=== PATIENT | female | born 1980 | race Caucasian/White ===

== ENCOUNTER 2016-09-28 21:17 | Emergency (ER) | payer SELFPAY ==
[~2016-09-28] VITALS: Ht 152.4 cm; Wt 79.5 kg
[2016-09-28 21:25] VITALS: TEMP 99
[2016-09-28 22:18] LABS: BASO # 0.1 (0.0-0.2); BASO % 0.4 % (0.0-2.0); EOS # 0.9 (0.0-0.7); EOS % 4.3 % (0-4.0); GRAN % 86.5 % (42.2-75.2); HEMOGLOBIN 15.1 g/dl (12.5-16.0); LYMPH # 0.7 (1.2-3.4); LYMPH % 3.3 % (20.0-51.0); MEAN CELL VOLUME 89 fl (80.0-100.0); MEAN CORPUSCULAR HEMOGLOBIN 31 pg (27.0-31.0); MEAN CORPUSCULAR HGB CONC 35 g/dl (33.0-37.0); MEAN PLATELET VOLUME 8.7 fl (7.4-10.4); PLATELET COUNT 380 K/mm3 (130-400); RED BLOOD COUNT 4.81 M/mm3 (4.10-5.30); REDCELL DISTRIBUTION WIDTH-CV 12.5 % (11.5-14.5)
[2016-09-28 22:20] LABS: WHITE BLOOD COUNT 20.8 K/mm3 (4.8-10.8)
[2016-09-28 22:30] LABS: ADJUSTED CALCIUM 8.1 mg/dL (8.4-10.2); ALBUMIN 4.4 gm/dL (3.5-5.0); BILIRUBIN,TOTAL 0.6 mg/dL (0.0-1.0); CALCIUM 8.4 mg/dL (8.4-10.2); CREATININE, serum 0.61 mg/dL (0.52-1.25); POTASSIUM 3.5 mmol/L (3.4-5.0); TOTAL PROTEIN 7.6 gm/dL (6.4-8.2)
[2016-09-28 23:22] LABS: PH 5 (5-8); SQUAMOUS EPITHELIAL 0-2 /hpf; URINE APPEARANCE Clear; URINE BACTERIA None Seen /hpf; URINE BILIRUBIN Negative (NEGATIVE); URINE BLOOD Negative (NEGATIVE); URINE COLOR Yellow; URINE GLUCOSE Negative (NEGATIVE); URINE KETONE Trace (NEGATIVE); URINE RBC 0-2 /hpf; URINE UROBILINOGEN Negative (NEGATIVE); URINE WBC 0-2 /hpf
[2016-09-28 23:47] VITALS: BP 145/92; PULSE 77
== END 2016-09-28 23:49 | disposition home or self-care (01) ==
LOC: COL.ER 21:17
PROVIDERS: Emergency Medicine
DX: T62.91XA Toxic effect of unspecified noxious substance eaten as food, accidental (unintentional), initial encounter (principal); R11.10 Vomiting, unspecified; R19.7 Diarrhea, unspecified; R11.2 Nausea with vomiting, unspecified
CPT/HCPCS: J2765; J7030

== ENCOUNTER 2017-01-13 00:17 | Emergency (ER) | payer SELFPAY ==
[~2017-01-13] VITALS: Ht 157.5 cm; Wt 81.8 kg
[2017-01-13 00:23] VITALS: TEMP 98.1
[2017-01-13] MEDS ORDERED: AMOXICILLIN 50500 MG PO (00:46)
[2017-01-13 01:01] VITALS: BP 159/92; PULSE 84
== END 2017-01-13 01:06 | disposition home or self-care (01) ==
LOC: COL.ER 00:17
DX: H92.02 Otalgia, left ear (principal)